=== PATIENT | male | born 1960 | race Caucasian/White ===

== ENCOUNTER 2021-03-20 13:39 | Inpatient (IN) | payer MEDICARE ==
[2021-03-20] VITALS (9 sets, daily range): BP systolic 121–156; BP diastolic 59–79
[~2021-03-20] VITALS: Ht 170.2 cm; Wt 129.2 kg
[~2021-03-20 13:39] MED LIST: ASPI-1265 PO; ATEN100T PO; ATOR40TA72 PO; CLOP75TA34 PO; LEVO100T PO; LISI10TA27 PO
[2021-03-20] MEDS ORDERED: diphenhydrAMINE 25mg capsule PO PRN (14:00)
[2021-03-20] MEDS ORDERED: LORazepam 0.5 MG tablet PO PRN (14:00)
[2021-03-20] MEDS ORDERED: ATOR20TA PO (14:13)
[2021-03-20] MEDS ORDERED: LISI20TA28 PO (14:13)
[2021-03-20] MEDS ORDERED: CLOP75TA15 PO (14:13)
[2021-03-20] MEDS: normal saline 1,000 ML IV SCH ×2 (14:32→20:39)
[2021-03-20] MEDS ORDERED: heparin 1,000unit/ml 10ml vial 10 ML ONE (15:28)
[2021-03-20] MEDS ORDERED: DOPamine 400mg/D5W 250ml 250 ML IV ONE (15:28)
[2021-03-20] MEDS ORDERED: iohexol 350MG/ML 100ml bottle IV ONE (15:28)
[2021-03-20] MEDS ORDERED: phenylephrine 10mg/ml inj. ONE (15:28)
[2021-03-20] MEDS ORDERED: atropine 0.1mg/ml 10ml syringe ONE (15:28)
[2021-03-20] MEDS ORDERED: LIDOcaine 1% (10mg/ml)w/preservative injection 20ml MDV ONE ×2 (15:29→17:15)
[2021-03-20] MEDS ORDERED: iohexol 350 MG/ML 50ML vial IV ONE (17:10)
[2021-03-20] MEDS ORDERED: clopidogrel 300mg tablet ONE (17:19)
[2021-03-20] MEDS ORDERED: fentaNYL/PF 50MCG/1 ML 2ML syringe ONE (17:26)
--- NOTE | 2021-03-20 18:05 | NUR ---
received pt into room 316 with no prior report, report given from crime laboratory analyst rn at bedside. pt postop carotid endarectomy, fem stop intact to right groin, no bleeding noted ,approx 100 mm pressure to femstop, right pedal pulses faint, but palpable.moniter shows NSR,rate 70's, ah=[id number] pt aware need to lie flat for 4 hours, dinner tray ordered, call romero in hand
[2021-03-20] MEDS ORDERED: hydrALAZINE 20mg/ml inj. IV PRN (18:20)
[2021-03-20] MEDS ORDERED: acetaminophen 325mg tablet PO PRN (18:20)
[2021-03-20] MEDS ORDERED: OXAZEpam 15mg capsule PO PRN (18:20)
[2021-03-20] MEDS ORDERED: pseudoephedrine 30mg tablet PO PRN (18:20)
[2021-03-20] MEDS ORDERED: proCHLORperazine 10 MG/2 ml inj IV PRN (18:20)
[2021-03-20] MEDS ORDERED: HYDROcodone/acetaminophen 5mg/325mg tablet PO PRN (18:20)
[2021-03-20] MEDS ORDERED: HYDROcodone/acetaminophen 10/325mg tab PO PRN (18:20)
--- NOTE | 2021-03-20 18:20 | NUR ---
Problems reprioritized. Patient report given, questions answered & plan of care reviewed with edwin hazel.
--- NOTE | 2021-03-20 18:25 | NUR ---
Patient in room MED 316. I have received report from Derek, and had the opportunity to ask questions and assume patient care.
[2021-03-20] MEDS ORDERED: atorvastatin 20mg tablet PO SCH (21:00)
--- NOTE | 2021-03-20 21:44 | NUR ---
FemoStop is removed. Patient still flat until 2200. The site is clean, dry, intact. some bruises around the cath site. No hematoma. Patient is AOX4. Call light within reach. All needs are met.
--- NOTE | 2021-03-20 22:18 | NUR ---
FemoStop removed. site is clean, dry, intact. No hematoma. Patient is having his dinner. AOX4, feeling much better. Monitoring the right groin for any changes.
[2021-03-21] MEDS: normal saline 1,000 ML IV SCH
--- NOTE | 2021-03-21 00:19 | NUR ---
Patient is very satisfied. The groin site is CDI, without hematoma. He is ready to go home in AM.
[2021-03-21 02:00] VITALS: BP 144/66
[2021-03-21 06:00] VITALS: BP 154/84
--- NOTE | 2021-03-21 06:21 | NUR ---
Problems reprioritized. Patient report given, questions answered & plan of care reviewed with Derek.
--- NOTE | 2021-03-21 06:31 | NUR ---
Patient in room MED 316. I have received report from edwin hazel and had the opportunity to ask questions and assume patient care.
[2021-03-21] MEDS ORDERED: clopidogrel 75mg tablet PO SCH (08:00)
[2021-03-21] MEDS ORDERED: lisinopril 20mg tablet PO SCH (08:00)
[2021-03-21] MEDS ORDERED: levoTHYROXINE 100mcg tablet PO SCH (08:00)
[2021-03-21] MEDS ORDERED: atenolol 50mg tablet PO SCH (08:00)
[2021-03-21] MEDS ORDERED: aspirin 81mg tab.chew PO SCH (08:00)
[2021-03-21 08:37] VITALS: BP_SYST 160
--- NOTE | 2021-03-21 10:24 | NUR ---
reviewed all discharge instructions,pt aware that office willl call for f/u appt.post angiogram/bleeding/mobility precautions reviewed,s.l dc'd from [facility],site clear, pt dc'd via wheelchair with all belongings
--- NOTE | 2021-03-22 16:05 | NUR ---
CASE MANAGEMENT DISCHARGE FOLLOW UP: Spoke with pt via telephone. Reports that he is doing okay, notices a big difference, states that his vision is 10xbetter; denies CP, SOB, fever/chills, bleeding, dizziness/weakness/lightheadedness. Pt does admit to bruising at groin, upon inquiry, pt states bruise is the size of a basketball and spreading out, advised pt that he needs to notify his buffing turner and counter to make sure that there isn't a bleed. Pt does not seem concerned, but states will contact MD if bruising gets larger or he becomes symptomatic/ Verbalizes understanding of s/sx requiring further evaluation/emergent assistance. Verbalizes understanding of medications. Verbalizes compliance with MD discharge instructions. Verbalizes understanding of the importance in making/keeping follow-up appointments, will follow up with his buffing turner and counter on 03/31/21. States no further questions/concerns at this time.
== END 2021-03-21 10:24 | disposition home or self-care (01) | DRG 35 ==
LOC: SSTAY O 13:39 → MED 3N 17:20
PROVIDERS: ADMIT Internal Medicine Interventional Cardiology; ATTEND Internal Medicine Interventional Cardiology
PROC: 037K3DZ Dilation of Right Internal Carotid Artery with Intraluminal Device, Percutaneous Approach (ICD-10-PCS; principal; 2021-03-20)
DX: I65.23 Occlusion and stenosis of bilateral carotid arteries (principal); I42.9 Cardiomyopathy, unspecified; E03.9 Hypothyroidism, unspecified; I25.10 Atherosclerotic heart disease of native coronary artery without angina pectoris; E78.49 Other hyperlipidemia; I12.9 Hypertensive chronic kidney disease with stage 1 through stage 4 chronic kidney disease, or unspecified chronic kidney disease; N18.9 Chronic kidney disease, unspecified; Z90.49 Acquired absence of other specified parts of digestive tract; Z85.819 Personal history of malignant neoplasm of unspecified site of lip, oral cavity, and pharynx
CPT/HCPCS: 37215; 87081; 93005; A4663; A6258; C1725; C1760; C1769; C1876; C1884; C1887; C1894; G0378; J0461; J1265; J1644; J2001; J2370; J3010; J7030; Q0163; Q9967

== ENCOUNTER 2021-03-25 11:16 | Emergency (ER) | payer MEDICARE ==
[~2021-03-25] VITALS: Ht 175.3 cm; Wt 127.3 kg
[~2021-03-25 11:16] MED LIST changes: +ATOR20TA PO; -ATOR40TA72 PO; +CLOP75TA15 PO; -LISI10TA27 PO; +LISI20TA28 PO
[2021-03-25 12:12] LABS: BASOPHILS # (AUTO) 0.1 X10'3 (0-0.2); BASOPHILS % (AUTO) 1.1 % (0-1); EOSINOPHILS # (AUTO) 0.2 X10'3 (0-0.9); EOSINOPHILS % (AUTO) 3.4 % (0-6); HEMATOCRIT 40.7 % (42.0-52.0); HEMOGLOBIN 13.2 g/dl (14.0-17.9); LYMPHOCYTES # (AUTO) 1.1 X10'3 (1.1-4.8); LYMPHOCYTES % (AUTO) 15.7 % (21-51); MEAN CORPUSCULAR HEMOGLOBIN 25.4 PG (27.0-31.0); MEAN CORPUSCULAR HGB CONC 32.5 g/dL (33.0-36.5); MEAN CORPUSCULAR VOLUME 78.1 FL (78-98); MEAN PLATELET VOLUME 7.8 FL (7.4-10.4); MONOCYTES # (AUTO) 1.1 X10'3 (0-0.9); MONOCYTES % (AUTO) 14.8 % (2-12); NEUTROPHILS # (AUTO) 4.6 X10'3 (1.8-7.7); PLATELET COUNT 261 X10'3 (140-440); RED BLOOD COUNT 5.21 X10'6 (4.70-6.10); RED CELL DISTRIBUTION WIDTH 20.1 % (11.5-14.5); WHITE BLOOD COUNT 7.1 X10'3 (4.5-11.0)
[2021-03-25] MEDS ORDERED: morphine 4 MG/ML inj SYRINge IV ONE (12:20)
[2021-03-25 12:32] LABS: ALANINE AMINOTRANSFERASE 19 U/L (12-78); ALBUMIN 3.4 G/DL (3.4-5.0); ALBUMIN/GLOBULIN RATIO 0.9 (1.1-1.5); ALKALINE PHOSPHATASE 75 IU/L (46-116); ANION GAP 9 (8-16); ASPARTATE AMINO TRANSFERASE 15 U/L (10-37); BILIRUBIN,TOTAL 0.5 MG/DL (0.1-1.0); BLOOD UREA NITROGEN 31 MG/DL (7-18); BUN/CREATININE RATIO 18.6 (5.4-32.0); CALCIUM 9.1 MG/DL (8.5-10.1); CHLORIDE 105 MMOL/L (99-107); CREATININE 1.67 MG/DL (0.60-1.10); GLUCOSE 119 MG/DL (70-104); POTASSIUM 4.5 MMOL/L (3.5-5.1); SODIUM 140 MMOL/L (135-145); TOTAL CARBON DIOXIDE 26.1 MMOL/L (24-32); TOTAL PROTEIN 7.1 G/DL (6.4-8.2); eGFR 42 ML/MIN
--- NOTE | 2021-03-25 12:40 | NUR ---
VASC ON THEIR WAY
[2021-03-25] MEDS ORDERED: OXYC-145 PO (13:47)
[2021-03-25 14:09] VITALS: BP 136/63
== END 2021-03-25 14:12 | disposition home or self-care (01) ==
LOC: ER 11:18
DX: L76.32 Postprocedural hematoma of skin and subcutaneous tissue following other procedure (principal); Z98.890 Other specified postprocedural states; Z87.81 Personal history of (healed) traumatic fracture; Z79.82 Long term (current) use of aspirin; Z79.899 Other long term (current) drug therapy; Z88.0 Allergy status to penicillin; Z88.8 Allergy status to other drugs, medicaments and biological substances
CPT/HCPCS: 71045; 80053; 83880; 84484; 85025; 93005; 93926; 96374; 99285; J2270

== ENCOUNTER 2021-08-11 13:45 | Emergency (ER) | payer MEDICARE ==
[~2021-08-11] VITALS: Ht 175.3 cm; Wt 127.3 kg
[~2021-08-11 13:45] MED LIST changes: +OXYC-145 PO
[2021-08-11 13:47] VITALS: BP 170/92
== END 2021-08-11 18:48 | disposition home or self-care (01) ==
LOC: ER 13:46
DX: M54.50 Low back pain, unspecified (principal); R51.9 Headache, unspecified; R53.1 Weakness; Z85.9 Personal history of malignant neoplasm, unspecified; Z98.890 Other specified postprocedural states; Z88.2 Allergy status to sulfonamides; Z88.8 Allergy status to other drugs, medicaments and biological substances; Z79.82 Long term (current) use of aspirin; Z79.899 Other long term (current) drug therapy; Y09 Assault by unspecified means
CPT/HCPCS: 70450; 72125; 72128; 72131; 99285

== ENCOUNTER 2021-08-14 07:02 | Emergency (ER) | payer MEDICARE ==
[~2021-08-14] VITALS: Ht 175.3 cm; Wt 131.9 kg
--- NOTE | 2021-08-14 08:04 | NUR ---
CT PAGED [phone]
[2021-08-14] MEDS ORDERED: hyDRALAzine 10mg tablet PO STA (09:06)
[2021-08-14 09:56] VITALS: BP 158/86
== END 2021-08-14 10:08 | disposition home or self-care (01) ==
LOC: ER 07:03
DX: F07.81 Postconcussional syndrome (principal); I10 Essential (primary) hypertension; I25.2 Old myocardial infarction; Z87.81 Personal history of (healed) traumatic fracture; Z85.9 Personal history of malignant neoplasm, unspecified; Z79.82 Long term (current) use of aspirin; Z79.899 Other long term (current) drug therapy; Z88.2 Allergy status to sulfonamides; Z88.8 Allergy status to other drugs, medicaments and biological substances
CPT/HCPCS: 70450; 99284

== ENCOUNTER 2021-10-15 14:14 | Emergency (ER) | payer MEDICARE ==
[~2021-10-15] VITALS: Ht 175.3 cm; Wt 127.3 kg
[2021-10-15 14:43] LABS: BASOPHILS # (AUTO) 0.1 X10'3 (0-0.2); BASOPHILS % (AUTO) 1.2 % (0-1); EOSINOPHILS # (AUTO) 0.3 X10'3 (0-0.9); EOSINOPHILS % (AUTO) 3.8 % (0-6); HEMATOCRIT 46.4 % (42.0-52.0); HEMOGLOBIN 14.7 g/dl (14.0-17.9); LYMPHOCYTES # (AUTO) 1.4 X10'3 (1.1-4.8); LYMPHOCYTES % (AUTO) 18.5 % (21-51); MEAN CORPUSCULAR HEMOGLOBIN 23.4 PG (27.0-31.0); MEAN CORPUSCULAR HGB CONC 31.7 g/dL (33.0-36.5); MEAN CORPUSCULAR VOLUME 73.7 FL (78-98); MEAN PLATELET VOLUME 7.8 FL (7.4-10.4); MONOCYTES # (AUTO) 0.9 X10'3 (0-0.9); MONOCYTES % (AUTO) 12.2 % (2-12); NEUTROPHILS # (AUTO) 4.7 X10'3 (1.8-7.7); NEUTROPHILS % (AUTO) 64.3 % (42-75); PLATELET COUNT 286 X10'3 (140-440); RED CELL DISTRIBUTION WIDTH 18.9 % (11.5-14.5); WHITE BLOOD COUNT 7.3 X10'3 (4.5-11.0)
[2021-10-15 14:53] LABS: PARTIAL THROMBOPLASTIN TIME 27 SECONDS (22-32)
[2021-10-15 14:57] LABS: ALANINE AMINOTRANSFERASE 25 U/L (12-78); ALBUMIN 3.5 G/DL (3.4-5.0); ALBUMIN/GLOBULIN RATIO 0.9 (1.1-1.5); ALKALINE PHOSPHATASE 86 IU/L (46-116); ANION GAP 8 (8-16); ASPARTATE AMINO TRANSFERASE 15 U/L (10-37); BILIRUBIN,TOTAL 0.4 MG/DL (0.1-1.0); BLOOD UREA NITROGEN 33 MG/DL (7-18); BUN/CREATININE RATIO 20.8 (5.4-32.0); CALCIUM 8.8 MG/DL (8.5-10.1); CHLORIDE 107 MMOL/L (99-107); CREATININE 1.59 MG/DL (0.60-1.10); GLUCOSE 118 MG/DL (70-104); POTASSIUM 4.5 MMOL/L (3.5-5.1); SODIUM 142 MMOL/L (135-145); TOTAL CARBON DIOXIDE 27.2 MMOL/L (24-32); TOTAL PROTEIN 7.4 G/DL (6.4-8.2); eGFR 45 ML/MIN
[2021-10-15 15:15] LABS: ANISOCYTOSIS 2+; HYPOCHROMASIA 1+; MICROCYTOSIS 1+; PLATELET ESTIMATE NORMAL; POLYCHROMASIA FEW
[2021-10-15] MEDS ORDERED: iohexol 350MG/ML 100ml bottle IV ONE (15:46)
[2021-10-15 17:42] LABS: CLARITY,URINE CLEAR (Clear); GLUCOSE, URINE NEGATIVE (Neg); KETONES,URINE NEGATIVE (Neg); LEUKOCYTE ESTERASE ,URINE NEGATIVE (Neg); NITRITES, URINE NEGATIVE (Neg); OCCULT BLOOD,URINE NEGATIVE (Neg); PH,URINE 5.5 (4.8-8.0); PROTEIN,URINE NEGATIVE (Neg); UROBILINOGEN,URINE 0.2 E.U/dL (0.2-1.0)
[2021-10-15 17:48] LABS: COLOR,URINE STRAW (Yellow); UA COLLECTION TYPE CLN CATCH MIDSTREAM
[2021-10-15 18:10] VITALS: BP 160/83
== END 2021-10-15 18:36 | disposition home or self-care (01) ==
LOC: ER 14:15
DX: H53.8 Other visual disturbances (principal); R07.89 Other chest pain; R03.0 Elevated blood-pressure reading, without diagnosis of hypertension; R20.2 Paresthesia of skin; R42 Dizziness and giddiness; I10 Essential (primary) hypertension; Z88.2 Allergy status to sulfonamides; Z88.8 Allergy status to other drugs, medicaments and biological substances; Z79.82 Long term (current) use of aspirin; Z79.899 Other long term (current) drug therapy; Z87.81 Personal history of (healed) traumatic fracture; Z85.9 Personal history of malignant neoplasm, unspecified; Z95.5 Presence of coronary angioplasty implant and graft
CPT/HCPCS: 36415; 70496; 70498; 71045; 80053; 81003; 83880; 84484; 85008; 85025; 85610; 85730; 93005; 99285; Q9967

== ENCOUNTER 2023-03-18 14:22 | Emergency (ER) | payer MEDICARE ==
[~2023-03-18] VITALS: Ht 175.3 cm; Wt 135.8 kg
[2023-03-18 14:22] VITALS: BP 195/96
[2023-03-18] MEDS ORDERED: ondansetron 4mg rapidly disintigrating tab PO ONE (15:20)
[2023-03-18] MEDS ORDERED: morphine 4 MG/ML inj SYRINge IM ONE (15:20)
[2023-03-18] MEDS ORDERED: HYDR-3965 PO (15:42)
[2023-03-18] MEDS ORDERED: ONDA4TAB12 PO (15:42)
== END 2023-03-18 16:01 | disposition home or self-care (01) ==
LOC: ER 14:23
DX: R68.84 Jaw pain (principal); Z87.81 Personal history of (healed) traumatic fracture; I51.9 Heart disease, unspecified; Z88.2 Allergy status to sulfonamides; Z79.899 Other long term (current) drug therapy; Z88.6 Allergy status to analgesic agent; Z88.5 Allergy status to narcotic agent; Z79.82 Long term (current) use of aspirin
CPT/HCPCS: 96372; 99283; J2270

== ENCOUNTER 2024-02-17 08:38 | Inpatient (IN) | payer MEDICARE ==
[~2024-02-17] VITALS: Ht 175.3 cm; Wt 114.8 kg
[~2024-02-17 08:38] MED LIST changes: +ONDA4TAB12 PO
[2024-02-17 09:17] LABS: BASOPHILS # (AUTO) 0.1 X10'3 (0-0.2); BASOPHILS % (AUTO) 0.9 % (0-1); EOSINOPHILS # (AUTO) 0.3 X10'3 (0-0.9); HEMATOCRIT 55.7 % (42.0-52.0); LYMPHOCYTES # (AUTO) 1.4 X10'3 (1.1-4.8); LYMPHOCYTES % (AUTO) 16.3 % (21-51); MEAN CORPUSCULAR HEMOGLOBIN 28.2 PG (27.0-31.0); MEAN CORPUSCULAR HGB CONC 33.1 g/dL (33.0-36.5); MEAN CORPUSCULAR VOLUME 85.2 FL (78-98); MEAN PLATELET VOLUME 8.1 FL (7.4-10.4); MONOCYTES % (AUTO) 11.6 % (2-12); NEUTROPHILS % (AUTO) 68.2 % (42-75); PLATELET COUNT 242 X10'3 (140-440); RED BLOOD COUNT 6.55 X10'6 (4.70-6.10); RED CELL DISTRIBUTION WIDTH 16.7 % (11.5-14.5); WHITE BLOOD COUNT 8.8 X10'3 (4.5-11.0)
[2024-02-17 09:21] LABS: HEMOGLOBIN 18.4 g/dl (14.0-17.9)
[2024-02-17 09:48] LABS: ALBUMIN 3.8 G/DL (3.4-5.0); ANION GAP 13 (8-16); BLOOD UREA NITROGEN 31 MG/DL (7-18); BUN/CREATININE RATIO 14.5 (10.0-20.0); CALCIUM 9.9 MG/DL (8.5-10.1); CHLORIDE 106 MMOL/L (99-107); CREATININE 2.14 MG/DL (0.60-1.10); GLUCOSE 116 MG/DL (70-104); POTASSIUM 4.8 MMOL/L (3.5-5.1); PRO BRAIN NATRIURETIC PEPTIDE 6338 PG/ML (0-125); SODIUM 140 MMOL/L (135-145); TOTAL CARBON DIOXIDE 21.5 MMOL/L (24-32); eCRCL 36 ML/MIN; eGFR 31 ML/MIN
[2024-02-17] MEDS: aspirin 81mg tab.chew PO ONE (12:49)
[2024-02-17] MEDS: nitroGLYCERIN 0.4mg/hour patch TD ONE (12:49)
[2024-02-17] MEDS ORDERED: magnesium 2GM in 50ml NS 50 ML IV PRN (13:25)
[2024-02-17] MEDS ORDERED: magnesium 4gm in 100ml NS 100 ML IV PRN (13:25)
[2024-02-17] MEDS ORDERED: acetaminophen 325mg tablet PO PRN (13:25)
[2024-02-17] MEDS ORDERED: magnesium Cl slow-release 64mg tablet PO PRN (13:25)
[2024-02-17] MEDS ORDERED: magnesium hydroxide 30ml (MOM) UD suspension PO PRN (13:25)
[2024-02-17] MEDS ORDERED: potassium Cl 20 mEq SR tablet PO PRN ×2 (13:25)
[2024-02-17] MEDS ORDERED: ondansetron/PF 4mg/2ml inj IV PRN (13:25)
[2024-02-17] MEDS ORDERED: potassium Cl 40MEQ/1/2NS 520ml 520 ML IV PRN (13:25)
[2024-02-17] MEDS ORDERED: mag hydrox/Alum hydrox/simeth 30ml oral suspension PO PRN (13:25)
[2024-02-17 14:04] LABS: MAGNESIUM 2.3 MG/DL (1.5-2.4)
[2024-02-17 14:14] LABS: HEMOGLOBIN A1C 5.7 % (4.5-6.2)
[2024-02-17] MEDS ORDERED: LEVO200T8 PO (14:29)
[2024-02-17] MEDS ORDERED: TIZA-205 PO (14:29)
[2024-02-17] MEDS ORDERED: HYDR-3686 PO (14:31)
[2024-02-17] MEDS: hydrALAZINE 20mg/ml inj. IV ONE (15:08)
[2024-02-17] MEDS: furosemide 10 MG/1 ML 10ml inj IV SCH (15:09)
[2024-02-17] MEDS: acetaminophen 325mg tablet PO PRN (19:53)
[2024-02-17] MEDS: K and/or MAG REPLACEMENT MC SCH (20:00)
[2024-02-17 20:29] LABS: TOTAL CELLS COUNTED 100
[2024-02-17 20:30] LABS: ANISOCYTOSIS 1+; PLATELET ESTIMATE NORMAL
[2024-02-17 20:35] LABS: ELLIPTOCYTES FEW; TEAR DROP CELLS FEW
[2024-02-17] MEDS: tizanidine 4mg tablet PO SCH (21:45)
[2024-02-17] MEDS: hydrOXYzine 25 MG tablet PO SCH (21:46)
[2024-02-17] MEDS: atenolol 50mg tablet PO SCH (21:46)
[2024-02-17] MEDS: levoTHYROXINE 100mcg tablet PO SCH (21:46)
[2024-02-17 22:23] VITALS: RESP 16; O2SAT 95
[2024-02-17 22:30] VITALS: BP 146/92; PULSE 88; RESP 20; TEMP 98.5; O2SAT 95
[2024-02-18 07:22] LABS: BASOPHILS # (AUTO) 0.1 X10'3 (0-0.2); EOSINOPHILS # (AUTO) 0.3 X10'3 (0-0.9); EOSINOPHILS % (AUTO) 3.3 % (0-6); HEMATOCRIT 53.6 % (42.0-52.0); HEMOGLOBIN 17.5 g/dl (14.0-17.9); LYMPHOCYTES # (AUTO) 1.2 X10'3 (1.1-4.8); LYMPHOCYTES % (AUTO) 13.7 % (21-51); MEAN CORPUSCULAR HEMOGLOBIN 27.8 PG (27.0-31.0); MEAN CORPUSCULAR HGB CONC 32.7 g/dL (33.0-36.5); MEAN CORPUSCULAR VOLUME 85.2 FL (78-98); MEAN PLATELET VOLUME 8.3 FL (7.4-10.4); MONOCYTES # (AUTO) 1.2 X10'3 (0-0.9); MONOCYTES % (AUTO) 13.2 % (2-12); NEUTROPHILS # (AUTO) 6.1 X10'3 (1.8-7.7); NEUTROPHILS % (AUTO) 68.8 % (42-75); PLATELET COUNT 239 X10'3 (140-440); RED BLOOD COUNT 6.29 X10'6 (4.70-6.10); RED CELL DISTRIBUTION WIDTH 16.8 % (11.5-14.5); WHITE BLOOD COUNT 8.8 X10'3 (4.5-11.0)
[2024-02-18 07:29] LABS: ALBUMIN 3.3 G/DL (3.4-5.0); ANION GAP 4 (8-16); BLOOD UREA NITROGEN 31 MG/DL (7-18); BUN/CREATININE RATIO 15.3 (10.0-20.0); CALCIUM 9.3 MG/DL (8.5-10.1); CHLORIDE 102 MMOL/L (99-107); CHOL/HDL RATIO 6.4 (0.00-4.99); CHOLESTEROL 238 MG/DL (0-200); CREATININE 2.03 MG/DL (0.60-1.10); GLUCOSE 96 MG/DL (70-104); HDL CHOLESTEROL 37 MG/DL (35-60); LDL CHOLESTEROL 191 MG/DL (50-100); MAGNESIUM 1.9 MG/DL (1.5-2.4); PHOSPHORUS 3.2 MG/DL (2.3-4.5); POTASSIUM 4.4 MMOL/L (3.5-5.1); SODIUM 136 MMOL/L (135-145); TRIGLYCERIDES 118 MG/DL (20-135); eCRCL 38 ML/MIN; eGFR 33 ML/MIN
[2024-02-18 08:00] VITALS: RESP 16; O2SAT 96
[2024-02-18 10:00] VITALS: BP 137/78; PULSE 67; RESP 16; TEMP 97.8; O2SAT 94
[2024-02-18] MEDS ORDERED: FURO-150 PO (12:14)
[2024-02-18 13:29] LABS: THYROID STIMULATING HORMONE 24.05 ulU/ml (0.34-4.50)
== END 2024-02-18 13:30 | disposition home or self-care (01) | DRG 291 ==
LOC: ER 08:38 → ED HOLD 13:29 → ORTHO 4S 22:11
PROVIDERS: ADMIT Internal Medicine; ATTEND Internal Medicine
DX: I13.0 Hypertensive heart and chronic kidney disease with heart failure and stage 1 through stage 4 chronic kidney disease, or unspecified chronic kidney disease (principal); I50.33 Acute on chronic diastolic (congestive) heart failure; I20.0 Unstable angina; D75.1 Secondary polycythemia; Z20.822 Contact with and (suspected) exposure to COVID-19; N18.30 Chronic kidney disease, stage 3 unspecified; Z88.5 Allergy status to narcotic agent; Z88.2 Allergy status to sulfonamides; Z88.8 Allergy status to other drugs, medicaments and biological substances; I25.2 Old myocardial infarction; Z79.82 Long term (current) use of aspirin; Z79.01 Long term (current) use of anticoagulants; Z79.899 Other long term (current) drug therapy; Z86.73 Personal history of transient ischemic attack (TIA), and cerebral infarction without residual deficits; Z85.89 Personal history of malignant neoplasm of other organs and systems
CPT/HCPCS: 36415; 71045; 80048; 80061; 83036; 83735; 83880; 84100; 84443; 84484; 85007; 85025; 87081; 87811; 93005; 93308; 99285; G0378; J0360; J1940; Q0177

== ENCOUNTER 2024-06-29 05:37 | Inpatient (IN) | payer MEDICARE ==
[2024-06-29] VITALS (12 sets, daily range): BP systolic 152–180; BP diastolic 70–90; PULSE 50–61; RESP 13–19; TEMP 97.6–98.3; O2SAT 95–99
[~2024-06-29] VITALS: Ht 175.3 cm; Wt 122.7 kg
[~2024-06-29 05:37] MED LIST changes: -ASPI-1265 PO; -ATOR20TA PO; -CLOP75TA15 PO; -CLOP75TA34 PO; +FURO-150 PO; +HYDR-3686 PO; -LEVO100T PO; +LEVO200T8 PO; -LISI20TA28 PO; -ONDA4TAB12 PO; -OXYC-145 PO; +TIZA-205 PO
[2024-06-29 07:09] LABS: BASOPHILS # (AUTO) 0.1 X10'3 (0-0.2); BASOPHILS % (AUTO) 1.1 % (0-1); EOSINOPHILS # (AUTO) 0.4 X10'3 (0-0.9); EOSINOPHILS % (AUTO) 5.2 % (0-6); HEMATOCRIT 45.1 % (42.0-52.0); HEMOGLOBIN 14.5 g/dl (14.0-17.9); LYMPHOCYTES # (AUTO) 1.3 X10'3 (1.1-4.8); LYMPHOCYTES % (AUTO) 18.9 % (21-51); MEAN CORPUSCULAR HEMOGLOBIN 26.4 PG (27.0-31.0); MEAN CORPUSCULAR HGB CONC 32.2 g/dL (33.0-36.5); MEAN PLATELET VOLUME 7.9 FL (7.4-10.4); MONOCYTES # (AUTO) 1.1 X10'3 (0-0.9); MONOCYTES % (AUTO) 15.1 % (2-12); NEUTROPHILS # (AUTO) 4.2 X10'3 (1.8-7.7); NEUTROPHILS % (AUTO) 59.7 % (42-75); PLATELET COUNT 273 X10'3 (140-440); RED CELL DISTRIBUTION WIDTH 15.4 % (11.5-14.5)
[2024-06-29 07:25] LABS: ALANINE AMINOTRANSFERASE 15 U/L (12-78); ALBUMIN 3.5 G/DL (3.4-5.0); ALKALINE PHOSPHATASE 78 IU/L (46-116); ANION GAP 9 (8-16); ASPARTATE AMINO TRANSFERASE 19 U/L (10-37); BILIRUBIN,TOTAL 0.3 MG/DL (0.1-1.0); BLOOD UREA NITROGEN 31 MG/DL (7-18); BUN/CREATININE RATIO 19.5 (10.0-20.0); CALCIUM 8.9 MG/DL (8.5-10.1); CHLORIDE 104 MMOL/L (99-107); CREATININE 1.59 MG/DL (0.60-1.10); GLUCOSE 118 MG/DL (70-104); POTASSIUM 4.8 MMOL/L (3.5-5.1); SODIUM 137 MMOL/L (135-145); TOTAL CARBON DIOXIDE 24.3 MMOL/L (24-32); eCRCL 48 ML/MIN; eGFR 44 ML/MIN
[2024-06-29 07:32] LABS: PRO BRAIN NATRIURETIC PEPTIDE 3286 PG/ML (0-125)
[2024-06-29] MEDS ORDERED: metoprolol tartrate 1mg/ml inj IV PRN (08:00)
[2024-06-29] MEDS ORDERED: potassium Cl 20 mEq SR tablet PO PRN ×2 (08:00)
[2024-06-29] MEDS ORDERED: magnesium Cl slow-release 64mg tablet PO PRN (08:00)
[2024-06-29] MEDS: normal saline 1000ml 1,000 ML IV SCH (08:00)
[2024-06-29] MEDS ORDERED: magnesium sulf-water 4G/100mL 100 ML IV PRN (08:00)
[2024-06-29] MEDS ORDERED: potassium Cl 40MEQ/1/2NS 520ml 520 ML IV PRN (08:00)
[2024-06-29] MEDS ORDERED: HYDROcodone/acetaminophen 5mg/325mg tablet PO PRN (08:00)
[2024-06-29] MEDS ORDERED: aminophylline 250mg/10ml inj. IV PRN (08:00)
[2024-06-29] MEDS ORDERED: acetaminophen 325mg tablet PO PRN ×2 (08:00)
[2024-06-29] MEDS ORDERED: ondansetron/PF 4mg/2ml inj IV PRN (08:00)
[2024-06-29] MEDS ORDERED: morphine 2 MG/ML inj. syringe IV PRN ×2 (08:00)
[2024-06-29] MEDS ORDERED: magnesium sulf-water 2g/50mL 50 ML IV PRN (08:00)
[2024-06-29] MEDS ORDERED: HYDROcodone/acetaminophen 10/325mg tab PO PRN (08:00)
[2024-06-29] MEDS: heparin, porcine 5000 units/ml vial SQ SCH (08:49)
[2024-06-29] MEDS: nitroGLYCERIN 0.4mg SUBLingual tab SL PRN (08:56)
--- NOTE | 2024-06-29 08:57 | NUR ---
DISCUSSED PT CONDITION WITH NUC MED. CARITO TO TREAT CP AND HYPERTENSION PRIOR TO SLIME SCAN. ADMINISTERED SL NITRO X 1 DOSE FOR 5/10 CHEST PAIN.
[2024-06-29] MEDS: lisinopril 10 MG tablet PO SCH ×2 (09:40→16:37)
[2024-06-29] MEDS: amLODIPine 5mg tablet PO SCH ×2 (10:07→17:46)
[2024-06-29 10:45] LABS: BILIRUBIN,URINE NEGATIVE (Neg); CLARITY,URINE CLEAR (Clear); COLOR,URINE YELLOW (Yellow); GLUCOSE, URINE NEGATIVE (Neg); KETONES,URINE NEGATIVE (Neg); LEUKOCYTE ESTERASE ,URINE NEGATIVE (Neg); NITRITES, URINE NEGATIVE (Neg); OCCULT BLOOD,URINE NEGATIVE (Neg); PROTEIN,URINE NEGATIVE (Neg); UROBILINOGEN,URINE 0.2 E.U/dL (0.2-1.0)
[2024-06-29 10:52] LABS: UA COLLECTION TYPE CLN CATCH MIDSTREAM
[2024-06-29] MEDS: regadenoson 0.4mg/5ml syringe IV PRN (11:23)
--- NOTE | 2024-06-29 12:40 | NUR ---
PT BACK FROM SLIME SCAN. PT CONT TO FEEL SHORT OF BREATH. WILL NOTIFY .
--- NOTE | 2024-06-29 13:14 | NUR ---
DISCUSSED WITH DR. WARD, CONCERNS OF SOB AND DIZZINESS WELL PTS HISTORY. ASKED MD IF WE SHOULD CONSIDER CTA AND OR CAROTID VSCULAR STUDY. DR. WARD GAVE VERBAL ORDER FOR RESPIRATORY THERAPY EVAL AND TREAT.
[2024-06-29] MEDS ORDERED: albuterol 2.5 MG/3 ML nebule NEB PRN (13:15)
--- NOTE | 2024-06-29 13:37 | NUR ---
LATE MEAL TRAY REQUEST SENT TO DIETARY
--- NOTE | 2024-06-29 13:39 | NUR ---
pt ritting at bedside with significant other c/o ongoing cp to left chest radiates to left neck, + nausea
[2024-06-29 14:40] LABS: D-DIMER 0.74 MG/L FEU (0-0.50)
--- NOTE | 2024-06-29 15:38 | NUR ---
second page to Dr Mckenzie regarding patient hypertension. Awaiting return call
[2024-06-29] MEDS ORDERED: hyDRALAzine 10mg tablet PO PRN (16:20)
[2024-06-29] MEDS ORDERED: lisinopril 10 MG tablet PO PRN (18:55)
[2024-06-29] MEDS: furosemide 40mg/4ml inj IV ONE (20:18)
--- NOTE | 2024-06-29 23:58 | NUR ---
PHOEBE documentation: I have reviewed and agree with the assessments documented by Dc Reynolds LVN.
[2024-06-30] VITALS: BP 135/76; PULSE 57; RESP 16; TEMP 98.6; O2SAT 96
--- NOTE | 2024-06-30 06:30 | NUR ---
Patient in room PCU 3018. I have received report from Elliott SANDHU and had the opportunity to ask questions and assume patient care.
[2024-06-30 07:00] VITALS: BP 135/80; PULSE 60; RESP 16; TEMP 98.4; O2SAT 98
[2024-06-30 07:06] LABS: BASOPHILS # (AUTO) 0.1 X10'3 (0-0.2); BASOPHILS % (AUTO) 1.4 % (0-1); EOSINOPHILS # (AUTO) 0.5 X10'3 (0-0.9); EOSINOPHILS % (AUTO) 5.8 % (0-6); HEMATOCRIT 51.2 % (42.0-52.0); HEMOGLOBIN 16.4 g/dl (14.0-17.9); LYMPHOCYTES # (AUTO) 1.3 X10'3 (1.1-4.8); LYMPHOCYTES % (AUTO) 16.6 % (21-51); MEAN CORPUSCULAR HEMOGLOBIN 26.1 PG (27.0-31.0); MEAN CORPUSCULAR VOLUME 81.6 FL (78-98); MEAN PLATELET VOLUME 7.6 FL (7.4-10.4); MONOCYTES % (AUTO) 12.6 % (2-12); NEUTROPHILS % (AUTO) 63.6 % (42-75); PLATELET COUNT 303 X10'3 (140-440); RED BLOOD COUNT 6.28 X10'6 (4.70-6.10); RED CELL DISTRIBUTION WIDTH 15.7 % (11.5-14.5); WHITE BLOOD COUNT 7.9 X10'3 (4.5-11.0)
[2024-06-30 07:35] LABS: ALANINE AMINOTRANSFERASE 20 U/L (12-78); ALKALINE PHOSPHATASE 81 IU/L (46-116); ANION GAP 6 (8-16); ASPARTATE AMINO TRANSFERASE 22 U/L (10-37); BILIRUBIN,TOTAL 0.5 MG/DL (0.1-1.0); BLOOD UREA NITROGEN 25 MG/DL (7-18); BUN/CREATININE RATIO 13.9 (10.0-20.0); CALCIUM 9.4 MG/DL (8.5-10.1); CHLORIDE 105 MMOL/L (99-107); CHOL/HDL RATIO 7.5 (0.00-4.99); CHOLESTEROL 279 MG/DL (0-200); GLUCOSE 106 MG/DL (70-104); HDL CHOLESTEROL 37 MG/DL (35-60); POTASSIUM 4.7 MMOL/L (3.5-5.1); SODIUM 141 MMOL/L (135-145); TOTAL CARBON DIOXIDE 30.3 MMOL/L (24-32); TOTAL PROTEIN 8.1 G/DL (6.4-8.2); TRIGLYCERIDES 194 MG/DL (20-135); eCRCL 43 ML/MIN; eGFR 38 ML/MIN
[2024-06-30 07:47] LABS: LDL CHOLESTEROL 183 MG/DL (50-100)
[2024-06-30] MEDS: furosemide 20 MG/2 ML vial IV ONE (08:04)
[2024-06-30 08:43] VITALS: BP_SYST 135
[2024-06-30] MEDS: levoTHYROXINE 100mcg tablet PO SCH (08:43)
--- NOTE | 2024-06-30 12:00 | NUR ---
Reviewed and agree with Gabriela SANDHU's assessment
[2024-06-30] MEDS ORDERED: ROSU40TA PO (12:13)
--- NOTE | 2024-06-30 14:11 | NUR ---
Pt was a bit frustrated at all the questions for the second time. He said he has no pulm history, takes no pulm meds and is not a smoker. He doesn't feel he needs any pulmonary care. Addendum: 06/30/24 at 1412 by Jennifer Garsia RT Amended: Links added.
[2024-06-30 14:16] VITALS: PULSE 68; RESP 17; O2SAT 95
--- NOTE | 2024-06-30 14:37 | NUR ---
Patient discharged home with all belongings and discharge instructions. IV removed and tele monitor removed and returned to telegraph office telephone clerk. Patient ambulated out and left in private vehicle.
[2024-07-02 06:29] LABS: HBSAG SCREEN Negative (Negative); HEP B CORE AB, IGM Negative (Negative); HEP B CORE AB, TOT Negative (Negative)
== END 2024-06-30 14:37 | disposition home or self-care (01) | DRG 303 ==
LOC: ER 05:37 → ED HOLD 08:06 → EDBEDREQSVC 09:05 → EDBEDREQTM 09:05 → EDBEDREQ 09:05 → PCU 3S 14:30
PROVIDERS: ADMIT Internal Medicine; ATTEND Internal Medicine
PROC: 4A02XM4 Measurement of Cardiac Total Activity, External Approach (ICD-10-PCS; principal; 2024-06-29)
PROC: 3E073KZ Introduction of Other Diagnostic Substance into Coronary Artery, Percutaneous Approach (ICD-10-PCS; 2024-06-29)
DX: I25.119 Atherosclerotic heart disease of native coronary artery with unspecified angina pectoris (principal); I13.0 Hypertensive heart and chronic kidney disease with heart failure and stage 1 through stage 4 chronic kidney disease, or unspecified chronic kidney disease; I50.32 Chronic diastolic (congestive) heart failure; R07.89 Other chest pain; I42.9 Cardiomyopathy, unspecified; N18.30 Chronic kidney disease, stage 3 unspecified; E78.00 Pure hypercholesterolemia, unspecified; E03.9 Hypothyroidism, unspecified; I25.2 Old myocardial infarction; Z79.82 Long term (current) use of aspirin; Z79.899 Other long term (current) drug therapy; Z85.89 Personal history of malignant neoplasm of other organs and systems; Z88.2 Allergy status to sulfonamides; Z90.49 Acquired absence of other specified parts of digestive tract; Z92.21 Personal history of antineoplastic chemotherapy; Z92.3 Personal history of irradiation; Z95.5 Presence of coronary angioplasty implant and graft
CPT/HCPCS: 36415; 71045; 78452; 80053; 80061; 81003; 83880; 84484; 85025; 85379; 86704; 86705; 87081; 87340; 93005; 93017; 93306; 93880; 94760; 99285; A9500; G0378; J1644; J1940; J2785; J7030

== ENCOUNTER 2025-05-09 16:09 | Emergency (ER) | payer MEDICARE ==
[~2025-05-09] VITALS: Ht 175.3 cm; Wt 124.2 kg
[~2025-05-09 16:09] MED LIST changes: +ROSU40TA PO
[2025-05-09 16:13] VITALS: BP 139/89; PULSE 67; RESP 18; TEMP 97.8; O2SAT 98
--- NOTE | 2025-05-09 16:43 | RADIOLOGY REPORT ---
EXAM: DI KNEE, COMP 4 VW MIN CLINICAL HISTORY: KNEE PAIN COMPARISON: None TECHNIQUE: DI KNEE, COMP 4 VW MIN Findings/Impression: 3 views of the left knee. There is no evidence of an acute fracture, dislocation, blastic, or lytic lesions. No radiopaque foreign bodies. No joint effusion or superficial soft tissue abnormalities.
--- NOTE | 2025-05-09 17:12 | Physician Documentation ---
History of Present Illness ~ Chief Complaint: Knee Pain Stated Complaint: LT KNEE PAIN Time Seen by MD: 16:26 Primary Medical Doctor: Sruthi Manny [place] HPI General: Alert, no apparent distress. extremities: positve Fischer's negative Cory's drawer test Neurologic: Oriented x4. Psychiatric: Normal mood and affect. Skin: Normal color, warm and dry. No edema, no ecchymosis. Day of Onset: May 09, 2025 Tetanus witin 5 years: No (2017) Medication Reconciliation Allergies: Coded Allergies: Sulfa (Sulfonamide Antibiotics) (Verified Allergy, Unknown, 06/29/24) meperidine HCl (Verified Allergy, Unknown, 06/29/24) hydromorphone HCl (Verified Adverse Reaction, Unknown, THROWS UP, 06/29/24) Scheduled Atenolol (Atenolol), 1 TAB PO HS, (Reported) Furosemide (Lasix), 40 MG PO DAILY Hydroxyzine Hcl* (Atarax*), 1 TAB PO HS, (Reported) Levothyroxine Sodium (Levothyroxine Sodium), 1 TAB PO HS, (Reported) Rosuvastatin Calcium* (Crestor*), 1 TAB PO DAILY Tizanidine Hcl (Zanaflex), 1 TAB PO HS, (Reported) Past Medical History Past Medical History: CVA/TIA/Stroke, Hypertension, Myocardial Infarction, Acute Kidney Injury, Chronic Kidney Disease, Extremity Fracture, *CANCER* Past Surgical History: cancer surgery, orthopedic surgeries, other Other Past Surgical History: Right carotid stenting Smoking Status: Current every day smoker Alcohol Use: None Drug Use: none Lives with: Family Lives In: Home Physical Exam Vital Signs: Temperature: 97.8, Source: Oral, Heart Rate: 67, Respiratory Rate: 18, BP: 139/89, Pulse Oximetry: 98, Weight: 124.200 Progress Results/Orders Results/Orders Orders - LYNN KHOURY METAL BONDING CRIB ATTENDANT Knee, Complete (05/09/25 16:26) Completed Orders - LYNN KHOURY METAL BONDING CRIB ATTENDANT Knee, Complete (05/09/25 16:26) Vital Signs 05/09/25 16:13 Temp 97.8 Pulse 67 Resp 18 B/P (MAP) 139/89 Pulse Ox 98 Medical Decision Making Findings Presents with a suspected meniscal tear based on examination. did not Make note of any acute fractures per my interpretation of the patient's x-ray Departure Disposition: HOME / SELF CARE / HOMELESS Impression: Primary Impression: Effusion of knee Additional Impression: Knee pain Condition: Stable Discharge Instructions: Acute Knee Pain, Adult Additional Instructions: You need to get an MRI in the outpatient setting and I also recommend rehab via physical therapy Referrals: NO PRIMARY CARE PROVIDER (PCP) Signature Scribe Signature: y Attestation: Scribed for Lynn Khoury Dope Sprayer by Lynn Montero NP . 05/09/25 18:33 LYNN KHOURY NP May 09, 2025 17:12
== END 2025-05-09 17:23 | disposition home or self-care (01) ==
LOC: ER 16:10
DX: M25.462 Effusion, left knee (principal); I12.9 Hypertensive chronic kidney disease with stage 1 through stage 4 chronic kidney disease, or unspecified chronic kidney disease; N18.9 Chronic kidney disease, unspecified; I25.2 Old myocardial infarction; F17.200 Nicotine dependence, unspecified, uncomplicated; Z86.73 Personal history of transient ischemic attack (TIA), and cerebral infarction without residual deficits; Z88.2 Allergy status to sulfonamides; Z88.8 Allergy status to other drugs, medicaments and biological substances
CPT/HCPCS: 73564; 99284